=== PATIENT | female | born 1950 | race Caucasian/White ===

== ENCOUNTER 2017-01-12 08:35 | Outpatient (CLI) | END 2017-01-12 08:36 | disposition short-term general hospital (02) | LOC: AMBL 08:35 | PROVIDERS: ATTEND Family Medicine | DX: R53.1 Weakness (principal); R68.89 Other general symptoms and signs; C26.9 Malignant neoplasm of ill-defined sites within the digestive system; R41.0 Disorientation, unspecified; R00.0 Tachycardia, unspecified ==

== ENCOUNTER 2017-02-10 16:31 | Outpatient (CLI) ==
[2017-02-10 16:41] LABS: BASOPHILS % (AUTO) 0.2 % (0.0-3.0); EOSINOPHILS # (AUTO) 0.1 K/ul (0.0-0.7); EOSINOPHILS % (AUTO) 1.6 % (0.0-7.0); HEMATOCRIT 34.4 % (37.0-47.0); HEMOGLOBIN 11.2 g/dl (12.0-16.0); IMMATURE GRANULOCYTE % (AUTO) 1.6 % (0.0-5.0); LYMPHOCYTES # (AUTO) 2.3 K/uL (0.60-3.4); LYMPHOCYTES % (AUTO) 28.8 (10.0-50.0); MEAN CORPUSCULAR HEMOGLOBIN 28.9 pg (27.0-31.0); MEAN CORPUSCULAR HGB CONC 32.6 (31.8-35.4); MEAN CORPUSCULAR VOLUME 88.7 fl (81.0-99.0); MONOCYTES # (AUTO) 1.6 K/uL (0.4-2.0); MONOCYTES % (AUTO) 19.5 (0-10); NEUTROPHILS # (AUTO) 3.9 K/ul (2.0-6.9); NEUTROPHILS % (AUTO) 48.3; PLATELET COUNT 206 10^3/uL (140-440); RED BLOOD COUNT 3.88 10^6/ul (4.20-5.40)
== END 2017-02-10 16:32 | disposition home or self-care (01) ==
LOC: NONPT 16:31
PROVIDERS: ATTEND Family Medicine
DX: E46 Unspecified protein-calorie malnutrition (principal); D64.9 Anemia, unspecified; D49.9 Neoplasm of unspecified behavior of unspecified site
CPT/HCPCS: 85025